=== PATIENT | male | born 1935 | race Caucasian/White ===

== ENCOUNTER 2020-08-30 22:02 | Inpatient (IN) ==
[2020-08-30] MEDS ORDERED: DEXTROSE 50% 50 ML VIAL IV PRN (22:27)
[2020-08-30] MEDS ORDERED: DEXTROSE 31 GM ORAL.SUSP PO PRN (22:27)
[2020-08-30] MEDS ORDERED: guaiFENesin/DEXTROMETHORPHAN ORAL SOL PO PRN (22:30)
[2020-08-30] MEDS ORDERED: ONDANSETRON 4 MG/2 ML VIAL IV PRN (22:31)
[2020-08-30] MEDS ORDERED: morphine 4 MG/ML VIAL IV PRN (22:33)
[2020-08-30] MEDS ORDERED: oxyCODONE/APAP 5/325MG TABLET PO PRN (22:33)
--- NOTE | 2020-08-30 22:39 | Internal Med History&Physical ---
HPI History of Present Illness Patient information: Note initiated : 08/30/20 at 10:38 pm Service Date, if different from initiated Date: [] Patient: Valentin Farah a 85 y/o M admitted on for Pneumonia. Chief Complaint: [community acquired pneumonia.] History of present illness: Mr. Farah is a 85 year old M multiple medical comorbidities including permanent atrial fibrillation's, type 2 diabetes, essential hypertension's, mixed dyslipidemia, benign prostatic hypertrophy, hypothyroidism, presenting with 2-week history of gradually worsening shortness of breath, cough, and fever with T-max 102.4. He is also committing of general body weakness. Of note, he finished vaccinations against Covid pneumonia in March of this year. He denies recent travel or sick contact. Due to his symptoms, his presented to [facility] emergency room where a chest x-ray confirmed the presence of a left lower lobe pneumonia. His lactic acid was also found to be elevated to 2.2. Leukocytosis also presents with WBC around 14. He was also initially found to be hypoxic with oxygen saturation 88% on room air. Admission request was made due to staffing unavailability in [facility]. Constitutional Constitutional: Present fever(s) and weakness; Absent chills, excessive sweating and fatigue EENT Eyes: Absent blurry vision, change in vision, loss of vision and other visual disturbances Ears: Absent decreased hearing and tinnitus Nose, mouth and throat: Absent abnormal hearing, dry mouth, headache(s), nasal congestion and sore throat Cardiovascular Cardiovascular: Absent chest pain, chest pain at rest, edema, irregular heart rhythm and palpatations Respiratory Respiratory: Present cough and dyspnea; Absent wheezing Gastrointestinal Gastrointestinal: Absent abdominal pain, constipation, diarrhea, nausea and vomiting Musculoskeletal Musculoskeletal: Absent back pain, deformity, limited range of motion, muscle cramps, muscle weakness and numbness Integumentary Integumentary: Absent lesions, rash and wounds Neurological Neurological: Absent focal weakness, headache(s) and numbness Psychiatric Psychiatric: Absent anxiety, depression and hallucinations PFSH PFSH All Active Problems (Updated 08/30/20 @ 22:38 by Milton Orosco MD) BPH (benign prostatic hyperplasia) (Acute) Hypothyroidism (Acute) Sepsis due to pneumonia (Acute) Acute respiratory failure (Acute) Left lower lobe pneumonia (Acute) History of prostate surgery (Acute) Prostate cancer (Chronic) Overactive bladder (Chronic) Incomplete bladder emptying (Chronic) Hypertension, essential (Chronic) Hyperlipemia (Chronic) Gout (Chronic) Diabetes mellitus, type II (Chronic) Anticoagulant long-term use (Chronic) Colon polyp (Chronic) Barretts esophagus (Chronic) Atrial fibrillation (Chronic) Aortic aneurysm (Chronic) Aneurysm (Chronic) Medical History (Updated 08/30/20 @ 22:38 by Milton Orosco MD) Aneurysm Anticoagulant long-term use Aortic aneurysm Atrial fibrillation Barretts esophagus Colon polyp Diabetes mellitus, type II Gout Hyperlipemia Hypertension, essential Incomplete bladder emptying Overactive bladder Prostate cancer Surgical History (Updated 03/30/20 @ 10:54 by DriftToIt MA) History of prostate surgery Seed implant for prostate cancer Family History sister Heart valve disease Social History (Updated 05/26/17 @ 13:18 by Cornell Rodriguez MD) alcohol intake frequency: former alcohol drinker substance use type: does not use MEDS/ALLERGIES Home Medications and Allergies Home Medications Medication Instructions Recorded Confirmed Type allopurinol 300 mg tablet 300 mg PO QDAY 12/09/14 08/19/18 History amlodipine 10 mg tablet 5 mg PO QDAY 12/09/14 08/19/18 History levothyroxine 50 mcg tablet 50 mcg PO QDAY 12/09/14 08/19/18 History lisinopril 40 mg tablet 40 mg PO QDAY 12/09/14 08/19/18 History metformin 500 mg tablet 500 mg PO BID 12/09/14 08/19/18 History omeprazole 20 mg capsule,delayed 20 mg PO QDAY 12/09/14 08/19/18 History release tamsulosin 0.4 mg capsule 0.4 mg PO QDAY 12/09/14 08/19/18 History warfarin 5 mg tablet 5 mg PO QDAY 12/09/14 08/19/18 History colchicine 0.6 mg PO DAILY 06/17/16 08/19/18 History digoxin 250 mcg (0.25 mg) tablet 125 mcg PO QDAY 06/17/16 08/19/18 History hydrocodone-acetaminophen 1 - 2 tab PO Q4HP PRN 06/17/16 08/19/18 History simvastatin 20 mg tablet 20 mg PO QDAY 90 Days #90 tab 06/17/16 08/19/18 History Allergies Allergy/AdvReac Type Severity Reaction Status Date / Time No Known Drug Allergies Allergy Verified 08/19/18 10:54 EXAM Constitutional General appearance: cooperative and no acute distress Head Head exam: Present atraumatic and normocephalic Eye Eye exam: Present EOMI and PERRL ENT ENT exam: Present mucous membranes moist, normal exam and normal external ear exam Additional comments: nasal cannula in place Neck Neck exam: Present normal inspection; Absent lymphadenopathy, tenderness and thyromegaly Respiratory Respiratory exam: Absent accessory muscle use, respiratory distress and wheezes Additional comments: Respiratory crackles best heard in left lung base Cardiovascular Cardiovascular exam: Present normal rate and rhythm; Absent JVD GI/Abdominal GI/Abdominal exam: Present normal bowel sounds and soft; Absent organomegaly and tenderness Rectal Rectal exam: Present deferred Extremities Exam Extremities exam: Present full ROM, normal capillary refill and normal inspection; Absent tenderness Neurological Exam Neurological exam: Present alert, CN II-XII intact and oriented X3; Absent motor sensory deficit Psychiatric Psychiatric exam: Present normal affect and normal mood; Absent anxious and dep ressed Skin Skin exam: Present dry and intact A/P Assessment and plan (1) BPH (benign prostatic hyperplasia): Status: Acute (2) Hypothyroidism: Status: Acute (3) Sepsis due to pneumonia: Status: Acute (4) Acute respiratory failure: Status: Acute (5) Left lower lobe pneumonia: Status: Acute (6) Prostate cancer: Status: Chronic (7) Hypertension, essential: Status: Chronic (8) Hyperlipemia: Status: Chronic (9) Diabetes mellitus, type II: Status: Chronic (10) Atrial fibrillation: Status: Chronic Narrative A/P Narrative: Assessment and Plans: 1. Acute respiratory failure with hypoxia and sepsis secondary to community acquire pneumonia in left lower lobe: Admit to inpatient med surg telemetry CoVID PCR Influenza A and B screening Rapid strep test Supplemental oxygen via nasal cannula titrate to achieve Spo2 >=92% Tylenol PRN fever Robitussin DM PRN cough DuoNEB NEB q4hr PRN wheezing or SOB Rocephin Zithromax s/p fluid boluses in ED according to sepsis protocol, to be followed by NS@100cc/hr Blood culture X2 Serial lactic acid Procalcitonin cbc w/ auto diff in the morning to trend WBC 2. Permanent atrial fibrillation: Rate controlled by Digoxin Warfarin, INR used for dosing 3. T2DM: HgA1c Hold Metformin Sliding scale insulin AC HS Accu Chek AC HS Hypoglycemia protocol 4. Essential HTN: Currently normotensive Amlodipine 5. Mixed dyslipidemia: Statin 6. BPH: Continue Flomax 7. h/o Prostate cancer: Continue to monitor Need follow up with oncologist outpatient GI ppx: Continue oral PPI from home regimen DVT ppx: Warfarin, INR daily for dosing Code status: Full Prognosis: guarded Disposition: Inpatient med surg telemetry Time Spent With Patient Time: Total time spent is greater than 50% in coordination of care (as documented) at patient's floor/unit and/or counseling patient: Total time spent with greater than 50% in coordination of care (as documented) at patient's floor/unit and/or counseling patient:: 25 - 35 minutes
[2020-08-30] MEDS: cefTRIAXone 1 GM VIAL IV SCH (23:00)
[2020-08-30] MEDS: AZITHROMYCIN 500 MG in DEXTROSE 5% IN WATER 250 ML IV SCH (23:00)
[2020-08-30] MEDS: 0.9 % SODIUM CHLORIDE 1,000 ML IV SCH (23:10)
[2020-08-31] MEDS ORDERED: 0.9 % SODIUM CHLORIDE 10 ML SYRINGE IV SCH (06:00)
[2020-08-31 06:42] LABS: Basophils # (Auto) 0.08 K/mcL (0.00-0.20); Basophils % (Auto) 0.6 % (0.0-2.0); Eosinophils # (Auto) 0.12 K/mcL (0.00-0.70); Eosinophils % (Auto) 0.9 % (0.0-7.0); Hematocrit 28.6 % (41.0-55.0); Hemoglobin 9.4 g/dL (13.5-16.5); Lymphocytes # (Auto) 1.59 K/mcL (1.50-4.80); Lymphocytes % (Auto) 11.7 % (15.0-49.0); Mean Cell Volume 98.6 fL (80.0-100.0); Mean Corpuscular HGB Conc 32.9 g/dL (31.0-36.0); Monocytes % (Auto) 7.3 % (1.0-12.0); Neutrophils % (Auto) 79.5 % (38.0-78.0); Platelet Count 176 K/mcL (140-440); Red Cell Distribution Width 15.2 % (11.5-14.5); WBC 13.6 K/mcL (4.5-11.0)
[2020-08-31 06:50] LABS: INR 2.2 (0.9-1.1); Prothrombin Time 25.5 sec (11.9-14.5)
[2020-08-31 07:00] LABS: ALT/SGPT 24 U/L (<40); AST/SGOT 21 U/L (<40); Albumin 3.3 gm/dL (3.2-5.2); Albumin/Globulin Ratio 1.4 (1.0-2.3); Alkaline Phosphatase 40 U/L (39-117); Bilirubin,Total 0.4 mg/dL (0.1-1.0); Blood Urea Nitrogen 9 mg/dL (8-23); Calcium 7.9 mg/dL (8.6-10.4); Carbon Dioxide 23 mmol/L (22-30); Chloride 104 mmol/L (96-108); Globulin 2.4 gm/dL (2.2-3.7); Glomerular Filtration Rate 68; Glucose 119 mg/dL (70-105)
[2020-08-31] MEDS: PANTOPRAZOLE 40 MG TABLET PO SCH (07:23)
[2020-08-31] MEDS: INSULIN LISPRO 1 UNIT/0.01 ML UNIT SQ SCH ×4 (07:27→20:19)
[2020-08-31 08:27] LABS: Hemoglobin A1C 6.7 % Hgb (4.0-6.0)
[2020-08-31] MEDS ORDERED: ENOXAPARIN 40 MG/0.4 ML SYRINGE SQ SCH (09:00)
[2020-08-31] MEDS ORDERED: [UNRECOGNIZED DRUG - OTHER] SCH (10:15)
[2020-08-31] MEDS ORDERED: DENOSUMAB SCH (10:15)
[2020-08-31] MEDS: cefTRIAXone 1 GM VIAL IV SCH (10:30)
[2020-08-31] MEDS: 0.9 % SODIUM CHLORIDE 1,000 ML IV SCH (10:33)
--- NOTE | 2020-08-31 10:33 | Internal Med Progress Note ---
SUBJECTIVE Subjective Patient information: Note initiated : 08/31/20 at 10:29 am Service Date, if different from initiated Date: [] Patient: Valentin Farah 85 y/o M admitted on 08/30/20 for Pneumonia. Chief Complaint: [community acquired pneumonia ] 08/31/20: afebrile. Still on supplemental oxygen overnight. c/o mild SOB, and productive cough with yellow sputum. c/o sore throat. Denies subjective fever or chills. Denies chest pain or palpitation. Blood culture no growth to date. CoVID PRC negative. Constitutional Vitals: Vital Signs Temp Pulse Resp BP Pulse Ox 37.0 C 74 18 163/77 95 08/31/20 08:00 08/31/20 08:00 08/31/20 08:00 08/31/20 08:00 08/31/20 08:00 Period Temp Pulse Resp BP Sys/Cuevas Pulse Ox Last 24 Hr 36.7 C-37.3 C 72-79 18-18 128-163/60-84 93-95 Intake and Output 08/30/20 08/31/20 08/31/20 21:59 05:59 13:59 Intake Total 200 360 Output Total 600 Balance -400 360 Weight 96.388 kg Intake & Output: Intake & Output 08/30/20 08/31/20 08/31/20 21:59 05:59 13:59 Intake Total 200 360 Output Total 600 Balance -400 360 Weight 96.388 kg Intake: Oral 200 360 Output: Urine Catheter Amount 600 Other: Meal Breakfast Percent of Meal Consumed 100% Urine Color Bright Yellow Bright Yellow Urine Odor Strong Normal General appearance: cooperative and no acute distress Head Head exam: Present atraumatic and normocephalic Eye Eye exam: Present EOMI and PERRL ENT ENT exam: Present mucous membranes moist, normal exam and normal external ear exam Additional comments: Nasal cannula in place 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 Neck Neck exam: Present normal inspection; Absent lymphadenopathy, tenderness and thyromegaly Respiratory Respiratory exam: Present rhonchi; Absent accessory muscle use, respiratory distress and wheezes Cardiovascular Cardiovascular exam: Present normal rate and rhythm; Absent JVD GI/Abdominal GI/Abdominal exam: Present normal bowel sounds and soft; Absent organomegaly and tenderness Rectal Rectal exam: Present deferred Extremities Exam Extremities exam: Present full ROM, normal capillary refill and normal inspection; Absent tenderness Neurological Exam Neurological exam: Present alert, CN II-XII intact and oriented X3; Absent motor sensory deficit Psychiatric Psychiatric exam: Present normal affect and normal mood; Absent anxious and depressed Skin Skin exam: Present dry and intact OBJ DATA Labs CBC & Chem 7: 08/31/20 05:10 08/31/20 05:10 Labs: Abnormal Lab Results 08/31/20 08/31/20 08/31/20 05:10 05:10 05:10 WBC 13.6 H RBC 2.90 L Hgb 9.4 L Hct 28.6 L RDW 15.2 H MPV 11.0 H Neut % (Auto) 79.5 H Lymph % (Auto) 11.7 L Pepin # (Auto) 1.00 H Absolute Neutrophils 10.82 H PT INR VBG Lactic Acid Glucose 119 H Hemoglobin A1c 6.7 H Calcium 7.9 L Total Protein 5.7 L Procalcitonin 08/31/20 08/30/20 08/30/20 05:09 23:43 23:40 WBC RBC Hgb Hct RDW MPV Neut % (Auto) Lymph % (Auto) Pepin # (Auto) Absolute Neutrophils PT 25.5 H INR 2.2 H VBG Lactic Acid 2.2 H Glucose Hemoglobin A1c Calcium Total Protein Procalcitonin 0.44 H Meds: Medications Acetaminophen (Acetaminophen 325 Mg Tablet) 650 mg PO Q6HP PRN; Protocol PRN Reason: Per Pain Protocol/Fever > 101 Albuterol/Ipratropium (Ipratropium/Albuterol 3 Ml Ampul.Neb) 3 ml NEB Q4HRT PRN PRN Reason: Wheezing Allopurinol (Allopurinol 300 Mg Tablet) 300 mg PO QDAY [facility] Amlodipine Besylate (Amlodipine 5 Mg Tablet) 5 mg PO QDAY [facility] Calcium/Vitamin D (Calcium W/Vit D3 500 Mg Tablet) 500 mg PO BID [facility] Ceftriaxone Sodium (Ceftriaxone 1 Gm Vial) 1 gm IV Q24H [facility]; Protocol Last Admin: 08/30/20 23:00 Dose: Not Given Documented by: Dextrose (Dextrose 50% 50 Ml Vial) 0 ml IV UD PRN PRN Reason: Hypoglycemia Diagnostic Test (Pha) (Accu-Chek 1 Each Strip) 1 each FS ACHS RADHA Last Admin: 08/31/20 07:24 Dose: 1 each Documented by: Digoxin (Digoxin 125 Mcg Tablet) 125 mcg PO QDAY [facility] Docusate Sodium (Docusate Sodium 100 Mg Capsule) 100 mg PO BID [facility] Enoxaparin Sodium (Enoxaparin 40 Mg/0.4 Ml Syringe) 40 mg SQ DAILY [facility] Glucose (Dextrose 31 Gm Oral.Susp) 15 gm PO PRN PRN PRN Reason: Hypoglycemia Guaifenesin (Guaifenesin/Dextromethorphan Oral Lety) 10 ml PO Q4HP PRN PRN Reason: Cough Last Admin: 08/31/20 07:32 Dose: 10 ml Documented by: Azithromycin 500 mg/ Dextrose 250 mls @ 250 mls/hr IV Q24H [facility]; Protocol Stop: 09/01/20 23:29 Last Admin: 08/30/20 23:00 Dose: Not Given Documented by: Sodium Chloride (Sodium Chloride 0.9%) 1,000 mls @ 100 mls/hr IV .Q10H [facility] Last Admin: 08/30/20 23:10 Dose: 100 mls/hr Documented by: Insulin Human Lispro (Insulin Lispro 1 Unit/0.01 Ml Unit) 0 unit SQ ACHS [facility]; Protocol Last Admin: 08/31/20 07:27 Dose: Not Given Documented by: Levothyroxine Sodium (Levothyroxine 50 Mcg Tablet) 50 mcg PO QAMAC [facility] Lisinopril (Lisinopril 20 Mg Tablet) 40 mg PO DAILY [facility] Morphine Sulfate (Morphine 4 Mg/Ml Vial) 2 mg IV Q4HP PRN; Protocol PRN Reason: Per Pain Protocol Ondansetron HCl (Ondansetron 4 Mg/2 Ml Vial) 4 mg IV Q6HP PRN PRN Reason: Nausea And Vomiting Pantoprazole Sodium (Pantoprazole 40 Mg Tablet) 40 mg PO QAMAC [facility] Last Admin: 08/31/20 07:23 Dose: 40 mg Documented by: Phenol (Phenol/Sodium Phenolate 5 [place] Bottle 180ml) 5 spray SSP Q2HP PRN PRN Reason: Sore Throat Senna (Sennosides 1 Tablet) 2 tab PO HS [facility] Simvastatin (Simvastatin 20 Mg Tablet) 20 mg PO HS [facility] Sodium Chloride (0.9 % Sodium Chloride 10 Ml Syringe) 10 ml IV Q8 [facility] Last Admin: 08/31/20 06:05 Dose: Not Given Documented by: Warfarin Sodium (Warfarin 5 Mg Tablet) 5 mg PO HS RADHA A/P Assessment and plan (1) BPH (benign prostatic hyperplasia): Status: Acute (2) Hypothyroidism: Status: Acute (3) Sepsis due to pneumonia: Status: Acute (4) Acute respiratory failure: Status: Acute (5) Left lower lobe pneumonia: Status: Acute (6) Prostate cancer: Status: Chronic (7) Hypertension, essential: Status: Chronic (8) Hyperlipemia: Status: Chronic (9) Diabetes mellitus, type II: Status: Chronic (10) Atrial fibrillation: Status: Chronic Narrative A/P Narrative: Assessment and Plans: 1. Acute respiratory failure with hypoxia and sepsis secondary to community acquire pneumonia in left lower lobe: Stays in inpatient med surg telemetry CoVID PCR negative Influenza A and B screening Rapid strep test Supplemental oxygen via nasal cannula titrate to achieve Spo2 >=92% Tylenol PRN fever Robitussin DM PRN cough Chloraseptic spray PRN sore throat DuoNEB NEB q4hr PRN wheezing or SOB Rocephin Zithromax s/p fluid boluses in ED according to sepsis protocol, to be followed by NS@1 00cc/hr Blood culture X2 Serial lactic acid Procalcitonin 0.44 cbc w/ auto diff in the morning to trend WBC 2. Permanent atrial fibrillation: Rate controlled by Digoxin Warfarin, INR used for dosing 3. T2DM: HgA1c 6.7 Hold Metformin Sliding scale insulin AC HS Accu Chek AC HS Hypoglycemia protocol 4. Essential HTN: Currently normotensive Amlodipine 5. Mixed dyslipidemia: Statin 6. BPH: Continue Flomax 7. h/o Prostate cancer: Continue to monitor Need follow up with oncologist outpatient GI ppx: Continue oral PPI from home regimen DVT ppx: Warfarin, INR daily for dosing Code status: Full Prognosis: guarded Disposition: Inpatient med surg telemetry Time Spent With Patient Time: Total time spent is greater than 50% in coordination of care (as documented) at patient's floor/unit and/or counseling patient: QUALITY Stroke Symptom Onset Unknown: No VTE Deep Vein Thrombosis/Pulmonary Embolism Present on Admission: No
[2020-08-31] MEDS: DOCUSATE SODIUM 100 MG CAPSULE PO SCH ×2 (10:34→20:17)
[2020-08-31] MEDS: ACETAMINOPHEN 325 MG TABLET PO PRN ×2 (12:56→20:17)
[2020-08-31] MEDS ORDERED: hydrALAZINE 20 MG/ML VIAL IV PRN (13:38)
[2020-08-31] MEDS: DIGOXIN 125 MCG TABLET PO SCH (14:25)
[2020-08-31] MEDS: PHENOL/SODIUM PHENOLATE 5 SPRAY BOTTLE 180ML SSP PRN ×3 (14:26→20:20)
--- NOTE | 2020-08-31 15:33 | XRay Report ---
HISTORY: Pneumonia with shortness of breath FINDINGS: There is a moderate size consolidating infiltrate in the right lower lobe. There is mild involvement around the right upper hilum. There may be mild inflammation behind the left heart border as well. No pleural effusion is present. The heart is mildly enlarged but magnified by portable technique. Comparison with the prior exam from [facility] done yesterday shows the pneumonia is new. IMPRESSION: new onset right side pneumonia, predominantly involving the right lower lobe Interpreted and Authenticated by: Clive Kuhn 08/31/20
[2020-08-31] MEDS: AZITHROMYCIN 500 MG in DEXTROSE 5% IN WATER 250 ML IV SCH (20:15)
[2020-08-31] MEDS: WARFARIN 5 MG TABLET PO SCH (20:16)
[2020-08-31] MEDS: CALCIUM W/VIT D3 500 MG TABLET PO SCH (20:16)
[2020-08-31] MEDS: SENNOSIDES 1 TABLET PO SCH (20:17)
[2020-08-31] MEDS: SIMVASTATIN 20 MG TABLET PO SCH (20:17)
[2020-09-01] MEDS: ACETAMINOPHEN 650 MG/65 ML BAG IV PRN ×2 (02:13→15:52)
[2020-09-01] MEDS ORDERED: ACETAMINOPHEN 1,000 MG/100 ML BAG IV ONE (02:14)
[2020-09-01 07:21] LABS: Basophils # (Auto) 0.06 K/mcL (0.00-0.20); Basophils % (Auto) 0.6 % (0.0-2.0); Hematocrit 26.6 % (41.0-55.0); Hemoglobin 8.9 g/dL (13.5-16.5); Lymphocytes # (Auto) 1.68 K/mcL (1.50-4.80); Lymphocytes % (Auto) 17.3 % (15.0-49.0); Mean Cell Volume 101.1 fL (80.0-100.0); Mean Corpuscular HGB Conc 33.5 g/dL (31.0-36.0); Mean Platelet Volume 11.3 fL (7.4-10.4); Monocytes # (Auto) 0.71 K/mcL (0.10-0.90); Monocytes % (Auto) 7.3 % (1.0-12.0); Neutrophils % (Auto) 73.8 % (38.0-78.0); Platelet Count 157 K/mcL (140-440); RBC 2.63 M/mcL (4.50-5.90); Red Cell Distribution Width 15.7 % (11.5-14.5); WBC 9.7 K/mcL (4.5-11.0)
[2020-09-01 07:43] LABS: INR 1.7 (0.9-1.1); Prothrombin Time 20.3 sec (11.9-14.5)
[2020-09-01] MEDS: INSULIN LISPRO 1 UNIT/0.01 ML UNIT SQ SCH ×4 (07:44→21:58)
[2020-09-01] MEDS: PANTOPRAZOLE 40 MG TABLET PO SCH (07:46)
[2020-09-01] MEDS: LEVOTHYROXINE 50 MCG TABLET PO SCH (07:46)
[2020-09-01 07:51] LABS: ALT/SGPT 19 U/L (<40); AST/SGOT 19 U/L (<40); Albumin/Globulin Ratio 1.1 (1.0-2.3); Alkaline Phosphatase 44 U/L (39-117); Bilirubin,Total 0.6 mg/dL (0.1-1.0); Blood Urea Nitrogen 10 mg/dL (8-23); Calcium 8.1 mg/dL (8.6-10.4); Carbon Dioxide 21 mmol/L (22-30); Chloride 104 mmol/L (96-108); Globulin 2.8 gm/dL (2.2-3.7); Glomerular Filtration Rate 68; Glucose 104 mg/dL (70-105)
--- NOTE | 2020-09-01 09:12 | XRay Report ---
HISTORY: Follow-up pneumonia with shortness of breath FINDINGS: Moderate size consolidating infiltrate is still present in the right lower lobe with milder involvement around the right hilum. This has remained stable since yesterday. Left lung base appears clear today. There is a thin band of discoid atelectasis adjacent to the left upper heart border. Left lung is otherwise clear. The heart is mildly enlarged. This remains stable. No pleural effusion is present. IMPRESSION: Persistent pneumonia predominantly involving the right lower lobe, with little change Interpreted and Authenticated by: Clive Kuhn 09/01/20
[2020-09-01] MEDS: CALCIUM W/VIT D3 500 MG TABLET PO SCH ×2 (10:09→21:28)
[2020-09-01] MEDS: ALLOPURINOL 300 MG TABLET PO SCH (10:09)
[2020-09-01] MEDS: LISINOPRIL 20 MG TABLET PO SCH (10:10)
[2020-09-01] MEDS: amLODIPine 5 MG TABLET PO SCH (10:10)
[2020-09-01] MEDS: cefTRIAXone 1 GM VIAL IV SCH (10:14)
[2020-09-01] MEDS: DOCUSATE SODIUM 100 MG CAPSULE PO SCH ×2 (10:14→21:27)
--- NOTE | 2020-09-01 12:20 | Internal Med Progress Note ---
SUBJECTIVE Subjective Patient information: Note initiated : 09/01/20 at 12:17 pm Service Date, if different from initiated Date: [] Patient: Valentin Farah 85 y/o M admitted on 08/30/20 for Pneumonia. Chief Complaint: [pneumonia] 08/31/20: afebrile. Still on supplemental oxygen overnight. c/o mild SOB, and productive cough with yellow sputum. c/o sore throat. Denies subjective fever or chills. Denies chest pain or palpitation. Blood culture no growth to date. CoVID PRC negative. 09/01: Afebrile overnight. Been on 3/min oxygen overnight. Blood culture no growth to date. c/o general body weakness. c/o mild SOB with productive cough with yellow sputum production. Denies subjective fever or chills. Denies chest pain or palpitation. Constitutional Vitals: Vital Signs Temp Pulse Resp BP Pulse Ox 36.6 C 81 14 126/64 96 09/01/20 12:00 09/01/20 12:00 09/01/20 12:00 09/01/20 12:00 09/01/20 12:00 Period Temp Pulse Resp BP Sys/Cuevas Pulse Ox Last 24 Hr 36.5 C-39.1 C 70-103 14-32 124-199/50-82 79-96 Intake and Output 08/31/20 09/01/20 09/01/20 21:59 05:59 13:59 Intake Total 730 215 600 Output Total 800 725 Balance -70 -510 600 Weight 94.12 kg Intake & Output: Intake & Output 08/31/20 09/01/20 09/01/20 21:59 05:59 13:59 Intake Total 730 215 600 Output Total 800 725 Balance -70 -510 600 Weight 94.12 kg Intake: IV 250 65 Zithromax 500 mg In Dextrose 5% 250 in Water 250 ml @ 250 mls/hr IV Q24H [facility] Rx#:[id number] Oral 480 150 600 Output: Urine Catheter Amount 800 725 Other: Meal Breakfast Percent of Meal Consumed 100% Feeding Ability Independent Urine Appearance Clear Clear Urine Color Bright Yellow Dark Yellow Bright Yellow Urine Odor Normal Normal Stool Size Small # Bowel Movements 1 General appearance: cooperative and no acute distress Head Head exam: Present atraumatic and normocephalic Eye Eye exam: Present EOMI and PERRL ENT ENT exam: Present mucous membranes moist, normal exam and normal external ear exam Additional comments: Oxygen mask in place Neck Neck exam: Present normal inspection; Absent lymphadenopathy, tenderness and thyromegaly Respiratory Respiratory exam: Absent accessory muscle use, respiratory distress and wheezes Cardiovascular Cardiovascular exam: Present irregular rhythm; Absent JVD GI/Abdominal GI/Abdominal exam: Present normal bowel sounds and soft; Absent organomegaly and tenderness Rectal Rectal exam: Present deferred Extremities Exam Extremities exam: Present full ROM, normal capillary refill and normal inspection; Absent tenderness Neurological Exam Neurological exam: Present alert, CN II-XII intact and oriented X3; Absent motor sensory deficit Psychiatric Psychiatric exam: Present normal affect and normal mood; Absent anxious and depressed Skin Skin exam: Present dry and intact OBJ DATA Labs CBC & Chem 7: 09/01/20 05:05 09/01/20 05:05 Labs: Abnormal Lab Results 09/01/20 09/01/20 09/01/20 05:05 05:05 05:05 WBC RBC 2.63 L Hgb 8.9 L Hct 26.6 L MCV 101.1 H RDW 15.7 H MPV 11.3 H Neut % (Auto) Lymph % (Auto) [place] # (Auto) Absolute Neutrophils PT 20.3 H INR 1.7 H VBG Lactic Acid Carbon Dioxide 21 L Glucose Hemoglobin A1c Calcium 8.1 L Total Protein 5.8 L Albumin 3.0 L Procalcitonin 08/31/20 08/31/20 08/31/20 05:10 05:10 05:10 WBC 13.6 H RBC 2.90 L Hgb 9.4 L Hct 28.6 L MCV RDW 15.2 H MPV 11.0 H Neut % (Auto) 79.5 H Lymph % (Auto) 11.7 L [place] # (Auto) 1.00 H Absolute Neutrophils 10.82 H PT INR VBG Lactic Acid Carbon Dioxide Glucose 119 H Hemoglobin A1c 6.7 H Calcium 7.9 L Total Protein 5.7 L Albumin Procalcitonin 08/31/20 08/30/20 08/30/20 05:09 23:43 23:40 WBC RBC Hgb Hct MCV RDW MPV Neut % (Auto) Lymph % (Auto) [place] # (Auto) Absolute Neutrophils PT 25.5 H INR 2.2 H VBG Lactic Acid 2.2 H Carbon Dioxide Glucose Hemoglobin A1c Calcium Total Protein Albumin Procalcitonin 0.44 H Meds: Medications Acetaminophen (Acetaminophen 325 Mg Tablet) 650 mg PO Q6HP PRN; Protocol PRN Reason: Per Pain Protocol/Fever > 101 Last Admin: 08/31/20 20:17 Dose: 650 mg Documented by: Albuterol/Ipratropium (Ipratropium/Albuterol 3 Ml Ampul.Neb) 3 ml NEB Q4HRT PRN PRN Reason: Wheezing Allopurinol (Allopurinol 300 Mg Tablet) 300 mg PO QDAY [facility] Last Admin: 09/01/20 10:09 Dose: 300 mg Documented by: Amlodipine Besylate (Amlodipine 5 Mg Tablet) 5 mg PO QDAY [facility] Last Admin: 09/01/20 10:10 Dose: 5 mg Documented by: Calcium/Vitamin D (Calcium W/Vit D3 500 Mg Tablet) 500 mg PO BID [facility] Last Admin: 09/01/20 10:09 Dose: 500 mg Documented by: Ceftriaxone Sodium (Ceftriaxone 1 Gm Vial) 1 gm IV Q24H [facility]; Protocol Last Admin: 09/01/20 10:14 Dose: 1 gm Documented by: Dextrose (Dextrose 50% 50 Ml Vial) 0 ml IV UD PRN PRN Reason: Hypoglycemia Diagnostic Test (Pha) (Accu-Chek 1 Each Strip) 1 each FS ACHS [facility] Last Admin: 09/01/20 11:32 Dose: 1 each Documented by: Digoxin (Digoxin 125 Mcg Tablet) 125 mcg PO DAILY@1400 [facility] Last Admin: 08/31/20 14:25 Dose: 125 mcg Documented by: Docusate Sodium (Docusate Sodium 100 Mg Capsule) 100 mg PO BID [facility] Last Admin: 09/01/20 10:14 Dose: Not Given Documented by: Glucose (Dextrose 31 Gm Oral.Susp) 15 gm PO PRN PRN PRN Reason: Hypoglycemia Guaifenesin (Guaifenesin/Dextromethorphan Oral Lety) 10 ml PO Q4HP PRN PRN Reason: Cough Last Admin: 08/31/20 07:32 Dose: 10 ml Documented by: Hydralazine HCl (Hydralazine 20 Mg/Ml Vial) 10 mg IV Q4-6HP PRN PRN Reason: Hypertension Last Admin: 08/31/20 14:22 Dose: 10 mg Documented by: Azithromycin 500 mg/ Dextrose 250 mls @ 250 mls/hr IV Q24H [facility]; Protocol Stop: 09/01/20 23:29 Last Infusion: 08/31/20 21:15 Dose: Infused Documented by: Acetaminophen (Ofirmev) 650 mg in 65 mls @ 130 mls/hr IV Q6HP PRN; Protocol PRN Reason: PAIN/FEVER > 101 Last Infusion: 09/01/20 02:45 Dose: Infused Documented by: Insulin Human Lispro (Insulin Lispro 1 Unit/0.01 Ml Unit) 0 unit SQ [facility]; Protocol Last Admin: 09/01/20 11:34 Dose: Not Given Documented by: Levothyroxine Sodium (Levothyroxine 50 Mcg Tablet) 50 mcg PO [facility] Last Admin: 09/01/20 07:46 Dose: 50 mcg Documented by: Lisinopril (Lisinopril 20 Mg Tablet) 40 mg PO DAILY [facility] Last Admin: 09/01/20 10:10 Dose: 40 mg Documented by: Morphine Sulfate (Morphine 4 Mg/Ml Vial) 2 mg IV Q4HP PRN; Protocol PRN Reason: Per Pain Protocol Ondansetron HCl (Ondansetron 4 Mg/2 Ml Vial) 4 mg IV Q6HP PRN PRN Reason: Nausea And Vomiting Pantoprazole Sodium (Pantoprazole 40 Mg Tablet) 40 mg PO [facility] Last Admin: 09/01/20 07:46 Dose: 40 mg Documented by: Phenol (Phenol/Sodium Phenolate 5 [place] Bottle 180ml) 5 spray SSP Q2HP PRN PRN Reason: Sore Throat Last Admin: 08/31/20 20:20 Dose: 5 spray Documented by: Senna (Sennosides 1 Tablet) 2 tab PO [facility] Last Admin: 08/31/20 20:17 Dose: Not Given Documented by: Simvastatin (Simvastatin 20 Mg Tablet) 20 mg PO [facility] Last Admin: 08/31/20 20:17 Dose: 20 mg Documented by: Warfarin Sodium (Warfarin 5 Mg Tablet) 5 mg PO [facility] Last Admin: 08/31/20 20:16 Dose: 5 mg Documented by: Warfarin Sodium (Warfarin Per Pharmacy) 1 order PO [facility] [place] Assessment and plan (1) BPH (benign prostatic hyperplasia): Status: Acute (2) Hypothyroidism: Status: Acute (3) Sepsis due to pneumonia: Status: Acute (4) Acute respiratory failure: Status: Acute (5) Left lower lobe pneumonia: Status: Acute (6) Prostate cancer: Status: Chronic (7) Hypertension, essential: Status: Chronic (8) Hyperlipemia: Status: Chronic (9) Diabetes mellitus, type II: Status: Chronic (10) Atrial fibrillation: Status: Chronic Narrative A/P Narrative: Assessment and Plans: 1. Acute respiratory failure with hypoxia and sepsis secondary to community acquire pneumonia in left lower lobe: Stays in inpatient med surg telemetry CoVID PCR negative Influenza A and B screening Rapid strep test Supplemental oxygen via nasal cannula titrate to achieve Spo2 >=92% Tylenol PRN fever Robitussin DM PRN cough Chloraseptic spray PRN sore throat DuoNEB NEB q4hr PRN wheezing or SOB Rocephin Zithromax s/p fluid boluses in ED according to sepsis protocol, to be followed by NS@100cc/hr Blood culture X2 Serial lactic acid Procalcitonin 0.44 cbc w/ auto diff in the morning to trend WBC 2. Permanent atrial fibrillation: Rate controlled by Digoxin Warfarin, INR used for dosing 3. T2DM: HgA1c 6.7 Hold Metformin Sliding scale insulin AC HS Accu Chek AC HS Hypoglycemia protocol 4. Essential HTN: Currently normotensive Amlodipine 5. Mixed dyslipidemia: Statin 6. BPH: Continue Flomax 7. h/o Prostate cancer: Continue to monitor Need follow up with oncologist outpatient GI ppx: Continue oral PPI from home regimen DVT ppx: Warfarin, INR daily for dosing Code status: Full Prognosis: guarded Disposition: Inpatient med surg telemetry Time Spent With Patient Time: Total time spent is greater than 50% in coordination of care (as documented) at patient's floor/unit and/or counseling patient: Total time spent with greater than 50% in coordination of care (as documented) at patient's floor/unit and/or counseling patient:: 25 - 35 minutes QUALITY Stroke Symptom Onset Unknown: No VTE Deep Vein Thrombosis/Pulmonary Embolism Present on Admission: No
[2020-09-01] MEDS: DIGOXIN 125 MCG TABLET PO SCH (13:22)
[2020-09-01] MEDS: SIMVASTATIN 20 MG TABLET PO SCH (21:27)
[2020-09-01] MEDS: WARFARIN 5 MG TABLET PO SCH (21:27)
[2020-09-01] MEDS: AZITHROMYCIN 500 MG in DEXTROSE 5% IN WATER 250 ML IV SCH ×2 (21:28→23:00)
[2020-09-01] MEDS: SENNOSIDES 1 TABLET PO SCH (21:28)
[2020-09-01] MEDS: IPRATROPIUM/ALBUTEROL 3 ML AMPUL.NEB NEB PRN (21:28)
[2020-09-02] MEDS: IPRATROPIUM/ALBUTEROL 3 ML AMPUL.NEB NEB PRN ×3 (01:30→21:15)
[2020-09-02] MEDS: ACETAMINOPHEN 650 MG/65 ML BAG IV PRN ×2 (04:54→19:30)
[2020-09-02 06:59] LABS: Basophils # (Auto) 0.06 K/mcL (0.00-0.20); Basophils % (Auto) 0.7 % (0.0-2.0); Eosinophils % (Auto) 2.3 % (0.0-7.0); Hematocrit 26.3 % (41.0-55.0); Hemoglobin 8.8 g/dL (13.5-16.5); Lymphocytes # (Auto) 1.27 K/mcL (1.50-4.80); Lymphocytes % (Auto) 14.6 % (15.0-49.0); Mean Cell Volume 98.5 fL (80.0-100.0); Mean Corpuscular HGB Conc 33.5 g/dL (31.0-36.0); Monocytes # (Auto) 0.78 K/mcL (0.10-0.90); Neutrophils % (Auto) 73.4 % (38.0-78.0); Platelet Count 173 K/mcL (140-440); RBC 2.67 M/mcL (4.50-5.90); Red Cell Distribution Width 15.1 % (11.5-14.5); WBC 8.7 K/mcL (4.5-11.0)
[2020-09-02 07:01] LABS: INR 1.4 (0.9-1.1); Prothrombin Time 17.9 sec (11.9-14.5)
[2020-09-02 07:18] LABS: ALT/SGPT 19 U/L (<40); AST/SGOT 22 U/L (<40); Albumin 3.2 gm/dL (3.2-5.2); Albumin/Globulin Ratio 1.1 (1.0-2.3); Alkaline Phosphatase 56 U/L (39-117); Bilirubin,Total 0.5 mg/dL (0.1-1.0); Blood Urea Nitrogen 13 mg/dL (8-23); Calcium 8.3 mg/dL (8.6-10.4); Carbon Dioxide 24 mmol/L (22-30); Chloride 99 mmol/L (96-108); Globulin 2.9 gm/dL (2.2-3.7); Glomerular Filtration Rate 68; Glucose 124 mg/dL (70-105)
[2020-09-02] MEDS: INSULIN LISPRO 1 UNIT/0.01 ML UNIT SQ SCH ×4 (07:40→20:28)
[2020-09-02] MEDS: PANTOPRAZOLE 40 MG TABLET PO SCH (08:52)
[2020-09-02] MEDS: CALCIUM W/VIT D3 500 MG TABLET PO SCH ×2 (08:52→20:21)
[2020-09-02] MEDS: DOCUSATE SODIUM 100 MG CAPSULE PO SCH ×2 (08:53→20:21)
[2020-09-02] MEDS: ALLOPURINOL 300 MG TABLET PO SCH (08:53)
[2020-09-02] MEDS: amLODIPine 5 MG TABLET PO SCH (08:53)
[2020-09-02] MEDS: LEVOTHYROXINE 50 MCG TABLET PO SCH (08:53)
[2020-09-02] MEDS: LISINOPRIL 20 MG TABLET PO SCH (08:54)
[2020-09-02] MEDS: cefTRIAXone 1 GM VIAL IV SCH (08:54)
--- NOTE | 2020-09-02 10:50 | Internal Med Progress Note ---
SUBJECTIVE Subjective Patient information: Note initiated : 09/02/20 at 10:44 am Service Date, if different from initiated Date: [] Patient: Valentin Farah 85 y/o M admitted on 08/30/20 for Pneumonia. Chief Complaint: [pneumonia] 08/31/20: afebrile. Still on supplemental oxygen overnight. c/o mild SOB, and productive cough with yellow sputum. c/o sore throat. Denies subjective fever or chills. Denies chest pain or palpitation. Blood culture no growth to date. CoVID PRC negative. 09/01: Afebrile overnight. Been on 3/min oxygen overnight. Blood culture no growth to date. c/o general body weakness. c/o mild SOB with productive cough with yellow sputum production. Denies subjective fever or chills. Denies chest pain or palpitation. 09/02/20: Fever with Tmax 38.0 earlier this morning. Been on 3L/min oxygen overnight. Blood culture no growth to date. c/o mild shortness of breath. c/o nonproductive cough without sputum production. Denies wheezing. Denies chest pain or palpitation. Denies fever, chills, or sweating. Constitutional Vitals: Vital Signs Temp Pulse Resp BP Pulse Ox 36.8 C 72 16 136/73 96 09/02/20 07:56 09/02/20 07:56 09/02/20 07:56 09/02/20 07:56 09/02/20 07:56 Period Temp Pulse Resp BP Sys/Cuevas Pulse Ox Last 24 Hr 36.6 C-38.0 C 72-93 14-22 126-148/60-77 91-96 Intake and Output 09/01/20 09/02/20 09/02/20 21:59 05:59 13:59 Intake Total 65 415 480 Output Total 650 750 Balance -585 -335 480 Weight 93.213 kg Intake & Output: Intake & Output 09/01/20 09/02/20 09/02/20 21:59 05:59 13:59 Intake Total 65 415 480 Output Total 650 750 Balance -585 -335 480 Weight 93.213 kg Intake: IV 65 315 Zithromax 500 mg In Dextrose 5% 250 in Water 250 ml @ 250 mls/hr IV Q24H [facility] Rx#:[id number] Oral 100 480 Output: Urine Catheter Amount 650 750 Other: Meal Dinner Breakfast Percent of Meal Consumed 100% 100% Feeding Ability Independent Urine Appearance Clear Urine Color Dark Yellow Dark Yellow Urine Odor Normal General appearance: cooperative and no acute distress Head Head exam: Present atraumatic and normocephalic Eye Eye exam: Present EOMI and PERRL ENT ENT exam: Present mucous membranes moist, normal exam and normal external ear exam Additional comments: Oxygen mask in place Neck Neck exam: Present normal inspection; Absent lymphadenopathy, tenderness and thyromegaly Respiratory Respiratory exam: Present rhonchi; Absent accessory muscle use, respiratory distress and wheezes Cardiovascular Cardiovascular exam: Present irregular rhythm; Absent JVD GI/Abdominal GI/Abdominal exam: Present normal bowel sounds and soft; Absent organomegaly and tenderness Rectal Rectal exam: Present deferred Extremities Exam Extremities exam: Present full ROM, normal capillary refill and normal inspection; Absent tenderness Neurological Exam Neurological exam: Present alert, CN II-XII intact and oriented X3; Absent motor sensory deficit Psychiatric Psychiatric exam: Present normal affect and normal mood; Absent anxious and depressed Skin Skin exam: Present dry and intact OBJ DATA Labs CBC & Chem 7: 09/02/20 05:26 09/02/20 05:26 Labs: Abnormal Lab Results 09/02/20 09/02/20 09/02/20 05:27 05:26 05:26 WBC RBC 2.67 L Hgb 8.8 L Hct 26.3 L MCV RDW 15.1 H MPV 11.0 H Neut % (Auto) Lymph % (Auto) 14.6 L Lymph # (Auto) 1.27 L [place] # (Auto) Absolute Neutrophils PT 17.9 H INR 1.4 H VBG Lactic Acid Carbon Dioxide Glucose 124 H Hemoglobin A1c Calcium 8.3 L Total Protein Albumin Procalcitonin 09/01/20 09/01/20 09/01/20 05:05 05:05 05:05 WBC RBC 2.63 L Hgb 8.9 L Hct 26.6 L MCV 101.1 H RDW 15.7 H MPV 11.3 H Neut % (Auto) Lymph % (Auto) Lymph # (Auto) [place] # (Auto) Absolute Neutrophils PT 20.3 H INR 1.7 H VBG Lactic Acid Carbon Dioxide 21 L Glucose Hemoglobin A1c Calcium 8.1 L Total Protein 5.8 L Albumin 3.0 L Procalcitonin 08/31/20 08/31/20 08/31/20 05:10 05:10 05:10 WBC 13.6 H RBC 2.90 L Hgb 9.4 L Hct 28.6 L MCV RDW 15.2 H MPV 11.0 H Neut % (Auto) 79.5 H Lymph % (Auto) 11.7 L Lymph # (Auto) [place] # (Auto) 1.00 H Absolute Neutrophils 10.82 H PT INR VBG Lactic Acid Carbon Dioxide Glucose 119 H Hemoglobin A1c 6.7 H Calcium 7.9 L Total Protein 5.7 L Albumin Procalcitonin 08/31/20 08/30/20 08/30/20 05:09 23:43 23:40 WBC RBC Hgb Hct MCV RDW MPV Neut % (Auto) Lymph % (Auto) Lymph # (Auto) [place] # (Auto) Absolute Neutrophils PT 25.5 H INR 2.2 H VBG Lactic Acid 2.2 H Carbon Dioxide Glucose Hemoglobin A1c Calcium Total Protein Albumin Procalcitonin 0.44 H Meds: Medications Acetaminophen (Acetaminophen 325 Mg Tablet) 650 mg PO Q6HP PRN; Protocol PRN Reason: Per Pain Protocol/Fever > 101 Last Admin: 08/31/20 20:17 Dose: 650 mg Documented by: Albuterol/Ipratropium (Ipratropium/Albuterol 3 Ml Ampul.Neb) 3 ml NEB Q4HRT PRN PRN Reason: Wheezing Last Admin: 09/02/20 01:30 Dose: 3 ml Documented by: Allopurinol (Allopurinol 300 Mg Tablet) 300 mg PO QDAY [facility] Last Admin: 09/02/20 08:53 Dose: 300 mg Documented by: Amlodipine Besylate (Amlodipine 5 Mg Tablet) 5 mg PO QDAY [facility] Last Admin: 09/02/20 08:53 Dose: 5 mg Documented by: Calcium/Vitamin D (Calcium W/Vit D3 500 Mg Tablet) 500 mg PO BID [facility] Last Admin: 09/02/20 08:52 Dose: 500 mg Documented by: Ceftriaxone Sodium (Ceftriaxone 1 Gm Vial) 1 gm IV Q24H [facility]; Protocol Last Admin: 09/02/20 08:54 Dose: 1 gm Documented by: Dextrose (Dextrose 50% 50 Ml Vial) 0 ml IV UD PRN PRN Reason: Hypoglycemia Diagnostic Test (Pha) (Accu-Chek 1 Each Strip) 1 each FS [facility] Last Admin: 09/02/20 07:38 Dose: 1 each Documented by: Digoxin (Digoxin 125 Mcg Tablet) 125 mcg PO DAILY@1400 [facility] Last Admin: 09/01/20 13:22 Dose: 125 mcg Documented by: Docusate Sodium (Docusate Sodium 100 Mg Capsule) 100 mg PO BID [facility] Last Admin: 09/02/20 08:53 Dose: 100 mg Documented by: Glucose (Dextrose 31 Gm Oral.Susp) 15 gm PO PRN PRN PRN Reason: Hypoglycemia Guaifenesin (Guaifenesin/Dextromethorphan Oral Lety) 10 ml PO Q4HP PRN PRN Reason: Cough Last Admin: 08/31/20 07:32 Dose: 10 ml Documented by: Hydralazine HCl (Hydralazine 20 Mg/Ml Vial) 10 mg IV Q4-6HP PRN PRN Reason: Hypertension Last Admin: 08/31/20 14:22 Dose: 10 mg Documented by: Acetaminophen (Ofirmev) 650 mg in 65 mls @ 130 mls/hr IV Q6HP PRN; Protocol PRN Reason: PAIN/FEVER > 101 Last Infusion: 09/02/20 05:28 Dose: Infused Documented by: Insulin Human Lispro (Insulin Lispro 1 Unit/0.01 Ml Unit) 0 unit SQ [facility]; Protocol Last Admin: 09/02/20 07:40 Dose: Not Given Documented by: Levothyroxine Sodium (Levothyroxine 50 Mcg Tablet) 50 mcg PO [facility] Last Admin: 09/02/20 08:53 Dose: 50 mcg Documented by: Lisinopril (Lisinopril 20 Mg Tablet) 40 mg PO DAILY [facility] Last Admin: 09/02/20 08:54 Dose: 40 mg Documented by: Morphine Sulfate (Morphine 4 Mg/Ml Vial) 2 mg IV Q4HP PRN; Protocol PRN Reason: Per Pain Protocol Ondansetron HCl (Ondansetron 4 Mg/2 Ml Vial) 4 mg IV Q6HP PRN PRN Reason: Nausea And Vomiting Pantoprazole Sodium (Pantoprazole 40 Mg Tablet) 40 mg PO [facility] Last Admin: 09/02/20 08:52 Dose: 40 mg Documented by: Phenol (Phenol/Sodium Phenolate 5 [place] Bottle 180ml) 5 spray SSP Q2HP PRN PRN Reason: Sore Throat Last Admin: 08/31/20 20:20 Dose: 5 spray Documented by: Senna (Sennosides 1 Tablet) 2 tab PO HS [facility] Last Admin: 09/01/20 21:28 Dose: 2 tab Documented by: Simvastatin (Simvastatin 20 Mg Tablet) 20 mg PO HS [facility] Last Admin: 09/01/20 21:27 Dose: 20 mg Documented by: Warfarin Sodium (Warfarin Per Pharmacy) 1 order PO UD [facility] Warfarin Sodium (Warfarin 7.5 Mg Tablet) 7.5 mg PO ONCE@1400 [facility] Stop: 09/02/20 14:01 A/P Assessment and plan (1) BPH (benign prostatic hyperplasia): Status: Acute (2) Hypothyroidism: Status: Acute (3) Sepsis due to pneumonia: Status: Acute (4) Acute respiratory failure: Status: Acute (5) Left lower lobe pneumonia: Status: Acute (6) Prostate cancer: Status: Chronic (7) Hypertension, essential: Status: Chronic (8) Hyperlipemia: Status: Chronic (9) Diabetes mellitus, type II: Status: Chronic (10) Atrial fibrillation: Status: Chronic Narrative A/P Narrative: Assessment and Plans: 1. Acute respiratory failure with hypoxia and sepsis secondary to community acquire pneumonia in left lower lobe: Stays in inpatient med surg telemetry CoVID PCR negative Influenza A and B screening Rapid strep test Supplemental oxygen via nasal cannula titrate to achieve Spo2 >=92% Tylenol PRN fever Robitussin DM PRN cough Chloraseptic spray PRN sore throat DuoNEB NEB q4hr PRN wheezing or SOB Rocephin Zithromax s/p fluid boluses in ED according to sepsis protocol, to be followed by NS@100cc/hr Blood culture X2, no growth to date Serial lactic acid Procalcitonin 0.44 cbc w/ auto diff in the morning to trend WBC 2. Permanent atrial fibrillation: Rate controlled by Digoxin Warfarin, INR daily used for dosing 3. T2DM: HgA1c 6.7 Hold Metformin Sliding scale insulin AC HS Accu Chek AC Hypoglycemia protocol 4. Essential HTN: Currently normotensive Amlodipine 5. Mixed dyslipidemia: Statin 6. BPH: Continue Flomax 7. h/o Prostate cancer: Continue to monitor Need follow up with oncologist outpatient GI ppx: Continue oral PPI from home regimen DVT ppx: Warfarin, INR daily for dosing Code status: Full Prognosis: guarded Disposition: Inpatient med surg telemetry Time Spent With Patient Time: Total time spent is greater than 50% in coordination of care (as documented) at patient's floor/unit and/or counseling patient: QUALITY Stroke Symptom Onset Unknown: No VTE Deep Vein Thrombosis/Pulmonary Embolism Present on Admission: No
[2020-09-02] MEDS: DIGOXIN 125 MCG TABLET PO SCH (13:31)
[2020-09-02] MEDS ORDERED: WARFARIN 7.5 MG TABLET PO ONE (14:00)
[2020-09-02] MEDS: FUROSEMIDE 40 MG TABLET PO SCH (16:09)
[2020-09-02] MEDS: SENNOSIDES 1 TABLET PO SCH (20:20)
[2020-09-02] MEDS: SIMVASTATIN 20 MG TABLET PO SCH (20:21)
[2020-09-03] MEDS: ACETAMINOPHEN 650 MG/65 ML BAG IV PRN ×2 (03:19→19:48)
[2020-09-03] MEDS: INSULIN LISPRO 1 UNIT/0.01 ML UNIT SQ SCH ×4 (06:48→20:41)
[2020-09-03] MEDS: LEVOTHYROXINE 50 MCG TABLET PO SCH (06:52)
[2020-09-03] MEDS: PANTOPRAZOLE 40 MG TABLET PO SCH (06:52)
[2020-09-03 07:17] LABS: Basophils # (Auto) 0.08 K/mcL (0.00-0.20); Basophils % (Auto) 0.9 % (0.0-2.0); Eosinophils # (Auto) 0.28 K/mcL (0.00-0.70); Eosinophils % (Auto) 3.3 % (0.0-7.0); Hematocrit 26.4 % (41.0-55.0); Hemoglobin 8.9 g/dL (13.5-16.5); Lymphocytes # (Auto) 1.49 K/mcL (1.50-4.80); Lymphocytes % (Auto) 17.5 % (15.0-49.0); Mean Cell Volume 98.1 fL (80.0-100.0); Mean Corpuscular HGB Conc 33.7 g/dL (31.0-36.0); Mean Platelet Volume 10.7 fL (7.4-10.4); Monocytes % (Auto) 9.4 % (1.0-12.0); Neutrophils % (Auto) 68.9 % (38.0-78.0); Platelet Count 192 K/mcL (140-440); RBC 2.69 M/mcL (4.50-5.90); WBC 8.5 K/mcL (4.5-11.0)
[2020-09-03 07:28] LABS: INR 1.7 (0.9-1.1); Prothrombin Time 20.4 sec (11.9-14.5)
[2020-09-03 07:52] LABS: ALT/SGPT 25 U/L (<40); AST/SGOT 30 U/L (<40); Albumin 3.4 gm/dL (3.2-5.2); Albumin/Globulin Ratio 1.2 (1.0-2.3); Alkaline Phosphatase 78 U/L (39-117); Bilirubin,Total 0.6 mg/dL (0.1-1.0); Blood Urea Nitrogen 13 mg/dL (8-23); Calcium 8.5 mg/dL (8.6-10.4); Carbon Dioxide 26 mmol/L (22-30); Chloride 100 mmol/L (96-108); Globulin 2.8 gm/dL (2.2-3.7); Glomerular Filtration Rate 68; Glucose 124 mg/dL (70-105)
[2020-09-03] MEDS: amLODIPine 5 MG TABLET PO SCH (08:49)
[2020-09-03] MEDS: LISINOPRIL 20 MG TABLET PO SCH (08:49)
[2020-09-03] MEDS: FUROSEMIDE 40 MG TABLET PO SCH (08:49)
[2020-09-03] MEDS: ALLOPURINOL 300 MG TABLET PO SCH (08:49)
[2020-09-03] MEDS: CALCIUM W/VIT D3 500 MG TABLET PO SCH ×2 (08:49→20:31)
[2020-09-03] MEDS: DOCUSATE SODIUM 100 MG CAPSULE PO SCH ×2 (08:49→20:31)
[2020-09-03] MEDS: cefTRIAXone 1 GM VIAL IV SCH (08:56)
--- NOTE | 2020-09-03 12:08 | Internal Med Progress Note ---
SUBJECTIVE Subjective Patient information: Note initiated : 09/03/20 at 12:06 pm Service Date, if different from initiated Date: [] Patient: Valentin Farah 85 y/o M admitted on 08/30/20 for Pneumonia. Chief Complaint: [pneumonia] 08/31/20: afebrile. Still on supplemental oxygen overnight. c/o mild SOB, and productive cough with yellow sputum. c/o sore throat. Denies subjective fever or chills. Denies chest pain or palpitation. Blood culture no growth to date. CoVID PRC negative. 09/01: Afebrile overnight. Been on 3/min oxygen overnight. Blood culture no growth to date. c/o general body weakness. c/o mild SOB with productive cough with yellow sputum production. Denies subjective fever or chills. Denies chest pain or palpitation. 09/02/20: Fever with Tmax 38.0 earlier this morning. Been on 3L/min oxygen overnight. Blood culture no growth to date. c/o mild shortness of breath. c/o nonproductive cough without sputum production. Denies wheezing. Denies chest pain or palpitation. Denies fever, chills, or sweating. 09/03/20: Fever with Tmax 38.0 earlier this morning. Been on 3L/min oxygen overnight. Blood culture no growth to date. c/o mild shortness of breath. c/o nonproductive cough without sputum production. Denies wheezing. Denies chest pain or palpitation. Denies fever, chills, or sweating. Constitutional Vitals: Vital Signs Temp Pulse Resp BP Pulse Ox 36.9 C 72 20 139/71 94 09/03/20 11:49 09/03/20 03:20 09/03/20 11:49 09/03/20 11:49 09/03/20 11:49 Period Temp Pulse Resp BP Sys/Cuevas Pulse Ox Last 24 Hr 36.6 C-39.0 C 72-96 16-24 122-167/63-79 86-98 Intake and Output 09/02/20 09/03/20 09/03/20 21:59 05:59 13:59 Intake Total 165 815 Output Total 2875 1050 Balance -2710 -235 Weight 94.12 kg Intake & Output: Intake & Output 07/09/03/20 09/03/20 21:59 05:59 13:59 Intake Total 165 815 Output Total 2875 1050 Balance -2710 -235 Weight 94.12 kg Intake: IV 65 65 Oral 100 750 Output: Urine Catheter Amount 2875 1050 Other: Urine Appearance Clear Clear Uretheral ([place]) Clear Urine Color Bright Yellow Bright Yellow Uretheral ([place]) Pale General appearance: cooperative and no acute distress Head Head exam: Present atraumatic and normocephalic Eye Eye exam: Present EOMI and PERRL ENT ENT exam: Present mucous membranes moist, normal exam and normal external ear exam Additional comments: Nasal cannula in place Neck Neck exam: Present normal inspection; Absent lymphadenopathy, tenderness and thyromegaly Respiratory Respiratory exam: Present rhonchi; Absent accessory muscle use, respiratory distress and wheezes Additional comments: Mild respiratory crackles in bilateral lung bases Nonproductive cough during examination Cardiovascular Cardiovascular exam: Present normal rate and rhythm; Absent JVD GI/Abdominal GI/Abdominal exam: Present normal bowel sounds and soft; Absent organomegaly and tenderness Rectal Rectal exam: Present deferred Extremities Exam Extremities exam: Present full ROM, normal capillary refill and normal insp ection; Absent tenderness Neurological Exam Neurological exam: Present alert, CN II-XII intact and oriented X3; Absent motor sensory deficit Psychiatric Psychiatric exam: Present normal affect and normal mood; Absent anxious and depressed Skin Skin exam: Present dry and intact OBJ DATA Labs CBC & Chem 7: 09/03/20 05:43 09/03/20 05:43 Labs: Abnormal Lab Results 09/03/20 09/03/20 09/03/20 05:43 05:43 05:43 RBC 2.69 L Hgb 8.9 L Hct 26.4 L MCV RDW 15.0 H MPV 10.7 H Lymph % (Auto) Lymph # (Auto) 1.49 L PT 20.4 H INR 1.7 H Carbon Dioxide Glucose 124 H Calcium 8.5 L Total Protein Albumin 09/02/20 09/02/20 09/02/20 05:27 05:26 05:26 RBC 2.67 L Hgb 8.8 L Hct 26.3 L MCV RDW 15.1 H MPV 11.0 H Lymph % (Auto) 14.6 L Lymph # (Auto) 1.27 L PT 17.9 H INR 1.4 H Carbon Dioxide Glucose 124 H Calcium 8.3 L Total Protein Albumin 09/01/20 09/01/20 09/01/20 05:05 05:05 05:05 RBC 2.63 L Hgb 8.9 L Hct 26.6 L MCV 101.1 H RDW 15.7 H MPV 11.3 H Lymph % (Auto) Lymph # (Auto) PT 20.3 H INR 1.7 H Carbon Dioxide 21 L Glucose Calcium 8.1 L Total Protein 5.8 L Albumin 3.0 L Meds: Medications Acetaminophen (Acetaminophen 325 Mg Tablet) 650 mg PO Q6HP PRN; Protocol PRN Reason: Per Pain Protocol/Fever > 101 Last Admin: 08/31/20 20:17 Dose: 650 mg Documented by: Albuterol/Ipratropium (Ipratropium/Albuterol 3 Ml Ampul.Neb) 3 ml NEB Q4HRT PRN PRN Reason: Wheezing Last Admin: 09/02/20 21:15 Dose: 3 ml Documented by: Allopurinol (Allopurinol 300 Mg Tablet) 300 mg PO QDAY [facility] Last Admin: 09/03/20 08:49 Dose: 300 mg Documented by: Amlodipine Besylate (Amlodipine 5 Mg Tablet) 5 mg PO QDAY [facility] Last Admin: 09/03/20 08:49 Dose: 5 mg Documented by: Calcium/Vitamin D (Calcium W/Vit D3 500 Mg Tablet) 500 mg PO BID [facility] Last Admin: 09/03/20 08:49 Dose: 500 mg Documented by: Ceftriaxone Sodium (Ceftriaxone 1 Gm Vial) 1 gm IV Q24H [facility]; Protocol Last Admin: 09/03/20 08:56 Dose: 1 gm Documented by: Dextrose (Dextrose 50% 50 Ml Vial) 0 ml IV UD PRN PRN Reason: Hypoglycemia Diagnostic Test (Pha) (Accu-Chek 1 Each Strip) 1 each FS ACHS [facility] Last Admin: 09/03/20 11:22 Dose: 1 each Documented by: Digoxin (Digoxin 125 Mcg Tablet) 125 mcg PO DAILY@1400 [facility] Last Admin: 09/02/20 13:31 Dose: 125 mcg Documented by: Docusate Sodium (Docusate Sodium 100 Mg Capsule) 100 mg PO BID [facility] Last Admin: 09/03/20 08:49 Dose: 100 mg Documented by: Furosemide (Furosemide 40 Mg Tablet) 40 mg PO DAILY [facility] Last Admin: 09/03/20 08:49 Dose: 40 mg Documented by: Glucose (Dextrose 31 Gm Oral.Susp) 15 gm PO PRN PRN PRN Reason: Hypoglycemia Guaifenesin (Guaifenesin/Dextromethorphan Oral Lety) 10 ml PO Q4HP PRN PRN Reason: Cough Last Admin: 08/31/20 07:32 Dose: 10 ml Documented by: Hydralazine HCl (Hydralazine 20 Mg/Ml Vial) 10 mg IV Q4-6HP PRN PRN Reason: Hypertension Last Admin: 08/31/20 14:22 Dose: 10 mg Documented by: Acetaminophen (Ofirmev) 650 mg in 65 mls @ 130 mls/hr IV Q6HP PRN; Protocol PRN Reason: PAIN/FEVER > 101 Last Infusion: 09/03/20 03:50 Dose: Infused Documented by: Insulin Human Lispro (Insulin Lispro 1 Unit/0.01 Ml Unit) 0 unit SQ [facility]; Protocol Last Admin: 09/03/20 11:25 Dose: 2 units Documented by: Levothyroxine Sodium ([facility] 50 Mcg Tablet) [facility] Admin: 09/03/20 06:52 Dose: 50 mcg Documented by: Lisinopril (Lisinopril 20 Mg Tablet) 40 mg PO DAILY [facility] Last Admin: 09/03/20 08:49 Dose: 40 mg Documented by: Morphine Sulfate (Morphine 4 Mg/Ml Vial) 2 mg IV Q4HP PRN; Protocol PRN Reason: Per Pain Protocol Ondansetron HCl (Ondansetron 4 Mg/2 Ml Vial) 4 mg IV Q6HP PRN PRN Reason: Nausea And Vomiting Pantoprazole Sodium (Pantoprazole 40 Mg Tablet) 40 mg PO QAMAC [facility] Last Admin: 09/03/20 06:52 Dose: 40 mg Documented by: Phenol (Phenol/Sodium Phenolate 5 [place] 180ml) 5 spray SSP Q2HP PRN PRN Reason: Sore Throat Last Admin: 08/31/20 20:20 Dose: 5 spray Documented by: Senna (Sennosides 1 Tablet) 2 tab PO [facility] Last Admin: 09/02/20 20:20 Dose: 2 tab Documented by: Simvastatin (Simvastatin 20 Mg Tablet) 20 mg PO [facility] Last Admin: 09/02/20 20:21 Dose: 20 mg Documented by: Warfarin Sodium (Warfarin Per Pharmacy) 1 order PO UD RADHA Warfarin Sodium (Warfarin 5 Mg Tablet) 5 mg PO ONCE@1400 ONE Stop: 09/03/20 14:01 A/P Assessment and plan (1) BPH (benign prostatic hyperplasia): Status: Acute (2) Hypothyroidism: Status: Acute (3) Sepsis due to pneumonia: Status: Acute (4) Acute respiratory failure: Status: Acute (5) Left lower lobe pneumonia: Status: Acute (6) Prostate cancer: Status: Chronic (7) Hypertension, essential: Status: Chronic (8) Hyperlipemia: Status: Chronic (9) Diabetes mellitus, type II: Status: Chronic (10) Atrial fibrillation: Status: Chronic Narrative A/P Narrative: Assessment and Plans: 1. Acute respiratory failure with hypoxia and sepsis secondary to community acquire pneumonia in left lower lobe: Stays in inpatient med surg telemetry CoVID PCR negative Influenza A and B screening Rapid strep test Supplemental oxygen via nasal cannula titrate to achieve Spo2 >=92% Tylenol PRN fever Robitussin DM PRN cough Chloraseptic spray PRN sore throat DuoNEB NEB q4hr PRN wheezing or SOB Rocephin Zithromax s/p fluid boluses in ED according to sepsis protocol, to be followed by NS@100cc/hr Blood culture X2, no growth to date Serial lactic acid Procalcitonin 0.44 cbc w/ auto diff in the morning to trend WBC 2. Permanent atrial fibrillation: Rate controlled by Digoxin Warfarin, INR daily used for dosing 3. T2DM: HgA1c 6.7 Hold Metformin Sliding scale insulin AC HS Accu Chek AC HS Hypoglycemia protocol 4. Essential HTN: Currently normotensive Amlodipine 5. Mixed dyslipidemia: Statin 6. BPH: Continue Flomax 7. h/o Prostate cancer: Continue to monitor Need follow up with oncologist outpatient GI ppx: Continue oral PPI from home regimen DVT ppx: Warfarin, INR daily for dosing Code status: Full Prognosis: guarded Disposition: Inpatient med surg telemetry Time Spent With Patient Time: Total time spent is greater than 50% in coordination of care (as documented) at patient's floor/unit and/or counseling patient: Total time spent with greater than 50% in coordination of care (as documented) at patient's floor/unit and/or counseling patient:: 25 - 35 minutes QUALITY Stroke Symptom Onset Unknown: No VTE Deep Vein Thrombosis/Pulmonary Embolism Present on Admission: No
[2020-09-03] MEDS: DIGOXIN 125 MCG TABLET PO SCH (13:51)
[2020-09-03] MEDS ORDERED: WARFARIN 5 MG TABLET PO ONE (14:00)
[2020-09-03] MEDS: SENNOSIDES 1 TABLET PO SCH (20:31)
[2020-09-03] MEDS: SIMVASTATIN 20 MG TABLET PO SCH (20:31)
[2020-09-04] MEDS: IPRATROPIUM/ALBUTEROL 3 ML AMPUL.NEB NEB PRN (06:02)
[2020-09-04] MEDS: INSULIN LISPRO 1 UNIT/0.01 ML UNIT SQ SCH ×2 (07:43→11:58)
[2020-09-04 07:56] LABS: Basophils # (Auto) 0.08 K/mcL (0.00-0.20); Basophils % (Auto) 0.9 % (0.0-2.0); Eosinophils # (Auto) 0.56 K/mcL (0.00-0.70); Eosinophils % (Auto) 6.3 % (0.0-7.0); Hematocrit 29.1 % (41.0-55.0); Hemoglobin 9.4 g/dL (13.5-16.5); Lymphocytes # (Auto) 2.03 K/mcL (1.50-4.80); Lymphocytes % (Auto) 22.8 % (15.0-49.0); Mean Cell Volume 99.7 fL (80.0-100.0); Mean Corpuscular HGB Conc 32.3 g/dL (31.0-36.0); Mean Platelet Volume 10.7 fL (7.4-10.4); Monocytes # (Auto) 0.95 K/mcL (0.10-0.90); Monocytes % (Auto) 10.7 % (1.0-12.0); Neutrophils % (Auto) 59.3 % (38.0-78.0); Platelet Count 240 K/mcL (140-440); RBC 2.92 M/mcL (4.50-5.90); WBC 8.9 K/mcL (4.5-11.0)
[2020-09-04 08:08] LABS: INR 1.9 (0.9-1.1); Prothrombin Time 23.1 sec (11.9-14.5)
[2020-09-04] MEDS: PANTOPRAZOLE 40 MG TABLET PO SCH (08:28)
[2020-09-04] MEDS: LISINOPRIL 20 MG TABLET PO SCH (08:28)
[2020-09-04] MEDS: DOCUSATE SODIUM 100 MG CAPSULE PO SCH (08:28)
[2020-09-04] MEDS: ALLOPURINOL 300 MG TABLET PO SCH (08:29)
[2020-09-04] MEDS: CALCIUM W/VIT D3 500 MG TABLET PO SCH (08:29)
[2020-09-04] MEDS: LEVOTHYROXINE 50 MCG TABLET PO SCH (08:29)
[2020-09-04] MEDS: amLODIPine 5 MG TABLET PO SCH (08:29)
[2020-09-04] MEDS: FUROSEMIDE 40 MG TABLET PO SCH (08:29)
[2020-09-04] MEDS: cefTRIAXone 1 GM VIAL IV SCH (08:30)
[2020-09-04 08:37] LABS: ALT/SGPT 31 U/L (<40); AST/SGOT 39 U/L (<40); Albumin 3.3 gm/dL (3.2-5.2); Albumin/Globulin Ratio 1.1 (1.0-2.3); Alkaline Phosphatase 99 U/L (39-117); Bilirubin,Total 0.5 mg/dL (0.1-1.0); Blood Urea Nitrogen 13 mg/dL (8-23); Calcium 8.8 mg/dL (8.6-10.4); Carbon Dioxide 22 mmol/L (22-30); Chloride 99 mmol/L (96-108); Globulin 3.1 gm/dL (2.2-3.7); Glomerular Filtration Rate 68; Glucose 117 mg/dL (70-105)
--- NOTE | 2020-09-04 10:17 | Discharge Summary ---
Discharge Provider Provider Patient information: Note initiated : 09/04/20 at 10:15 am Service Date, if different from initiated Date: [] Patient: Valentin Farah 85 y/o M admitted on 08/30/20 for Pneumonia. Chief Complaint: [Pneumonia] Date of admission: 08/30/20 22:58 Discharge date: 09/04/20 Primary care physician: Judi Castrejon Discharge Meds Discharge Medications Home Medications allopurinol 300 mg tablet 300 mg PO QDAY 12/09/14 [History Confirmed 08/30/20 Last Taken 08/30/20 07:00] levothyroxine 50 mcg tablet 50 mcg PO QDAY 12/09/14 [History Confirmed 08/30/20 Last Taken 08/30/20 07:00] lisinopril 40 mg tablet 40 mg PO QDAY 12/09/14 [History Confirmed 08/30/20 Last Taken 08/30/20 07:00] metformin 500 mg tablet 500 mg PO BID 12/09/14 [History Confirmed 08/30/20 Last Taken 08/30/20 07:00] omeprazole 20 mg capsule,delayed release 20 mg PO QDAY 12/09/14 [History Confir med 08/30/20 Last Taken 08/30/20 07:00] warfarin 5 mg tablet 5 mg PO HS 12/09/14 [History Confirmed 08/30/20 Last Taken 08/29/20] simvastatin 20 mg tablet 20 mg PO HS 90 Days #90 tab 06/17/16 [History Confirmed 08/30/20 Last Taken 08/29/20] Calcium + Vitamin D 1 tab PO BID 08/30/20 [History Confirmed 08/30/20 Last Taken 08/30/20 07:00] Xgeva See Rx Instructions .ROUTE .COMPLEX 08/30/20 [History Confirmed 08/31/20 Last Taken 07/12/20] amlodipine 5 mg PO QDAY 08/30/20 [History Confirmed 08/30/20 Last Taken 08/30/20 07:00] digoxin 125 mcg PO QDAY 08/30/20 [History Confirmed 08/30/20 Last Taken 08/30/20 07:00] leuprolide See Rx Instructions .ROUTE .COMPLEX 08/31/20 [History Confirmed 08/31/20 Last Taken 07/12/20] dextromethorphan-guaifenesin [Robafen DM Cough] 10 ml PO Q4HP PRN #200 ml 09/04/20 [Rx Last Taken Unknown] furosemide 20 mg PO DAILY #14 tab 09/04/20 [Rx Last Taken Unknown] COURSE Hospital Course Hospital course: Patient was admitted on August 30, 2020 for community-acquired pneumonia. After blood cultures were collected, patient was started on antibiotics in terms of Rocephin and Zithromax. Supplemental oxygen was provided titrate to maintain SPO2 above 92%. Blood culture with no growth to date. Patient has a relatively uneventful course of recovery and by September 04, 2020, patient has been tolerating room air, been afebrile for the 24 hours, and otherwise reached clinical stability's. As such, the decision was made to discharge patient home with instructions to follow-up with PCP in 2 weeks. All questions were answered prior to patient being physically discharged. Discharge diagnosis: pneumonia Time Spent with Patient Time attestation: Total time spent providing and/or coordinating discharge services: Patient was admitted on August 30, 2020 for community-acquired pneumonia. After blood cultures were collected, patient was started on antibiotics in terms of Rocephin and Zithromax. Supplemental oxygen was provided titrate to maintain SPO2 above 92%. Blood culture with no growth to date. Patient has a relatively uneventful course of recovery and by September 04, 2020, patient has been tolerating room air, been afebrile for the 24 hours, and otherwise reached clinical sta bility's. As such, the decision was made to discharge patient home with instructions to follow-up with PCP in 2 weeks. All questions were answered prior to patient being physically discharged. EXAM Constitutional Vitals: Temp Pulse Resp BP Pulse Ox 37.1 C 77 16 148/75 91 09/04/20 07:08 09/04/20 07:08 09/04/20 07:08 09/04/20 07:08 09/04/20 07:08 General appearance: cooperative and no acute distress Head Head exam: Present atraumatic and normocephalic Eye Eye exam: Present EOMI and PERRL ENT ENT exam: Present mucous membranes moist, normal exam and normal external ear exam Neck Neck exam: Present normal inspection; Absent lymphadenopathy, tenderness and thyromegaly Respiratory Respiratory exam: Absent accessory muscle use, respiratory distress and wheezes Cardiovascular Cardiovascular exam: Present normal rate and rhythm; Absent JVD GI/Abdominal GI/Abdominal exam: Present normal bowel sounds and soft; Absent organomegaly and tenderness Rectal Rectal exam: Present deferred Extremities Exam Extremities exam: Present full ROM, normal capillary refill and normal inspection; Absent tenderness Neurological Exam Neurological exam: Present alert, CN II-XII intact and oriented X3; Absent motor sensory deficit Psychiatric Psychiatric exam: Present normal affect and normal mood; Absent anxious and depressed Skin Skin exam: Present dry and intact Discharge Data Data Completed and Pending Labs on day of discharge: Labs from last 24 hours 09/04/20 09/04/20 09/04/20 06:21 06:21 06:21 WBC 8.9 RBC 2.92 L Hgb 9.4 L Hct 29.1 L MCV 99.7 MCH 32.2 MCHC 32.3 RDW 15.0 H Plt Count 240 MPV 10.7 H Neut % (Auto) 59.3 Lymph % (Auto) 22.8 [place] % (Auto) 10.7 Eos % (Auto) 6.3 Baso % (Auto) 0.9 Lymph # (Auto) 2.03 [place] # (Auto) 0.95 H Eos # (Auto) 0.56 Baso # (Auto) 0.08 Absolute Neutrophils 5.30 PT 23.1 H INR 1.9 H Sodium 137 Potassium 3.8 Chloride 99 Carbon Dioxide 22 Anion Gap 16.0 BUN 13 Creatinine 1.0 GFR Calculation 68 Glucose 117 H Calcium 8.8 Total Bilirubin 0.5 AST 39 ALT 31 Alkaline Phosphatase 99 Total Protein 6.4 Albumin 3.3 Globulin 3.1 Albumin/Globulin Ratio 1.1 Preliminary micro results at discharge 08/30/20 23:37 Blood Culture - Preliminary Blood 08/30/20 23:29 Blood Culture - Preliminary Blood Discharge Plan Patient/Caregiver Discharge Instructions Activity: as per physical therapy Diet: Consistent Carbohydrate Prescriptions: New furosemide 40 mg Tablet 20 mg PO DAILY Qty: 14 RF: 0 dextromethorphan-guaifenesin [Robafen DM Cough] 10-100 mg/5 mL Liquid 10 ml PO Q4HP PRN (Reason: Cough) Qty: 200 RF: 0 Continued metformin 500 mg tablet 500 mg PO BID RF: 0 levothyroxine 50 mcg tablet 50 mcg PO QDAY RF: 0 warfarin 5 mg tablet 5 mg PO HS RF: 0 omeprazole 20 mg capsule,delayed release(DR/EC) 20 mg PO QDAY RF: 0 allopurinol 300 mg tablet 300 mg PO QDAY RF: 0 lisinopril 40 mg tablet 40 mg PO QDAY RF: 0 amlodipine 5 mg tablet 5 mg PO QDAY RF: 0 digoxin 125 mcg (0.125 mg) tablet 125 mcg PO QDAY RF: 0 Calcium + Vitamin D 1 tab PO BID RF: 0 Xgeva 120 mg/1.7 mL (70 mg/mL) Solution See Rx Instructions .ROUTE .COMPLEX RF: 0 leuprolide 3.75 mg Injectable See Rx Instructions .ROUTE .COMPLEX RF: 0 simvastatin 20 tablet 20 mg PO HS 90 Days Qty: 90 RF: 0 Follow Up Plan Follow up with: Judi Castrejon MD [Primary Care Provider] - (in 2 weeks) Patient Disposition: Home, Self-Care Rehab Potential: Good I certify that the patient requires SNF services: No Overall status at discharge: patient is back to baseline Discharge Orders: Discharge Order (Routine); Ordered 09/04/20 Ordered By: Milton GUZMÁN VTE Deep Vein Thrombosis/Pulmonary Embolism Present on Admission: No
[2020-09-04] MEDS ORDERED: WARFARIN 7.5 MG TABLET PO ONE (14:00)
== END 2020-09-04 12:30 | disposition home or self-care (01) | DRG 871 ==
LOC: MEDSUR 22:58
PROVIDERS: ADMIT Internal Medicine; ATTEND Internal Medicine